=== PATIENT | female | born 1990 | race Caucasian/White ===

== ENCOUNTER 2024-10-14 10:13 | Outpatient (REF) | payer BC, SELFPAY ==
--- OUTSIDE RECORDS SUMMARY | 2024-10-14 10:59 | XMS_ITS | Patient Health Record ---
[facility] Address [address] [place] [address] Care Team Providers Care Division Field Inspector Name Role Phone Myrtle Lockhart Unavailable [phone] Reason For Referral No Information Medications Medication SIG (Take, Route, Frequency, Duration) Notes Start Date End Date Status Zantac 150MG 1 ORAL at bedtime; Duration: -3 Kei-MJ 04/17/2011 Active Vitamins 1 mg folate 1 ORAL once daily; Duration: -3 Kei-MJ 03/27/2013 Active Problems Problem Type SNOMED Code ICD Code Onset Dates Problem Status W/U Status Risk Notes Problem Migraine (disorder) (97692476) Migraine, unspecified without mention of intractable migraine without mention of status migrainosus (346.90) Active confirmed Major Problem Excessive or frequent menstruation (626.2) Active confirmed Diag Problem Abnormal vaginal bleeding (130838397) Other disorder of menstruation and other abnormal bleeding from female genital tract (626.8) Active confirmed Diag Problem Gynecological examination normal (294372352998444) Routine gynecological examination (V72.31) Active confirmed Diag Problem Contraception care education (126202086) Other general counseling and advice for contraceptive management (V25.09) Active confirmed Diag Plan Of Treatment No Information Insurance Providers Payer Name Payer Address Payer Phone Subscriber Number Group Number Insured Name Patient Relationship to Insured Coverage Start Date Coverage End Date [facility] [address] [place] [address] [phone] [id number] SHARON RED Self - patient is the insured 2
--- OUTSIDE RECORDS SUMMARY | 2024-10-14 10:59 | XMS_ITS | Clinical Summary ---
Author Organization [facility] Address [address] [place] [address] Phone Care Team Providers Care Quality Intern Name Role Phone Unavailable Primary Care Provider Unavailabl e Social History Tobacco Use Types Packs/Day Years Used Date Smoking Tobacco: Never Assessed Comments Unknown Sex and Gender Information Value Date Recorded Sex Assigned at Not on file Legal Sex Female 6:10 PM EDT Gender Identity Not on file Sexual Orientation Not on file Plan of Treatment Health Maintenance Due Date Last Done Comments MMR Vaccines (1 of 1 - Stand veronika series) 01/10/1989 Varicella Vaccines (1 of 2 - 13+ 2-dose series) 01/10/2001 DTaP,Tdap,and Td Vaccines (1 - Tdap) 01/10/2006 Hepatitis B Vaccines (1 of 3 - 19+ 3-dose series) 01/10/2007 COVID-19 Vaccine ( - 2023-2 5 season) 2023 Influenza Vaccines (#1) 2024 HIB Vaccines Aged Out No longer eligi ble based on patient's age to complete this topic HPV Vaccines Aged Out No longer eligi ble based on patient's age to complete this topic Hepatitis A Vaccines Aged Out No long er eligible based on patient's age to complete this topic IPV Vaccines Aged Out No longer eligi ble based on patient's age to complete this topic Men B Vaccine Aged Out No longer elig ible based on patient's age to complete this topic Meningococcal Vaccine Aged Out No madi maggie eligible based on patient's age to complete this topic Pneumococcal Vaccine Aged Out No long er eligible based on patient's age to complete this topic
== END 2024-10-14 10:14 | disposition home or self-care (01) ==
LOC: HO.MAMMO 10:13
PROVIDERS: PCP Internal Medicine; Visit Provider Internal Medicine
DX: Z12.31 Encounter for screening mammogram for malignant neoplasm of breast (principal)
CPT/HCPCS: 77063; 77067

== ENCOUNTER → 2024-10-14 10:30 | Outpatient (BNV) | payer BC, SELFPAY | PROVIDERS: PCP Internal Medicine; Visit Provider Internal Medicine | DX: Z12.31 Encounter for screening mammogram for malignant neoplasm of breast (principal) | CPT/HCPCS: 77063; 77067 ==